=== PATIENT | female | born 1975 | race Caucasian/White ===

== ENCOUNTER → 2016-10-07 | Day surgery (SDC) | payer OTHER ==
--- NOTE | 2016-10-07 19:15 | US ---
Left Breast Biopsy Indication: The patient was initially scheduled for an ultrasound-guided core biopsy with a possible stereotactic biopsy for assessment of left breast microcalcifications. Comparison to breast ultrasound examination September 16, 2016 and screening breast tomosynthesis Dece mber 2015. Findings: Repeat sonographic interrogation of the well-circumscribed area at the 4:00 position shows findings compatible with a cyst. In a slightly deeper location there is a hypoechoic structure with associated microcalcifications which presumably accounts for the findings noted mammographically. The appearance is most consistent with benign findings associated with fibrocystic condition. There is p rominent heterogeneous glandular pattern in the region. Following an extended discussion with the patient she elected to cancel the scheduled biopsy and inst ead have a six-month follow up for these probably benign findings. IMPRESSION: Probably benign findings, BI-RADS 3. Recommendation: 6 month left breast sonographic and mammographic follow up. Findings and follow-up recommendations were reviewed with the patient in detail. This examination was performed at no additional charge to the patient.
== END | disposition home or self-care (01) ==
LOC: FIMAGING 09:06
PROVIDERS: ATTEND Radiology Diagnostic Radiology
DX: N60.02 Solitary cyst of left breast (principal); Z53.29 Procedure and treatment not carried out because of patient's decision for other reasons

== ENCOUNTER → 2017-03-29 | Outpatient (CLI) | payer OTHER | LOC: FIMAGING 14:07 | PROVIDERS: ATTEND Obstetrics & Gynecology | DX: R92.8 Other abnormal and inconclusive findings on diagnostic imaging of breast (principal) | CPT/HCPCS: G0206 ==

== ENCOUNTER 2017-08-07 16:18 | Emergency (ER) | payer OTHER ==
[2017-08-07] MEDS ORDERED: NS 500 ML IV ONE (16:26)
--- NOTE | 2017-08-07 16:27 | EDPHY ---
H & P HPI/ROS: CHIEF COMPLAINT: Cough, near-syncope HISTORY OF PRESENT ILLNESS: Patient is a 42-year-old female with a history of anxiety presents to the emergency department with multiple complaints. Patient states that she developed cold-like symptoms on July 26. She has been dealing with a cough and intermittent nasal congestion since that time. She feels as though his cold is going backwards. Her cough is nonproductive. Because of this she started taking Mucinex last night. Today she took Mucinex and then took a nap. Upon waking she tried to stand. When she stood up she felt lightheaded and dizzy so she laid back down. She called EMS. EMS reports the patient's glucose was 109. They had sinus tachycardia on the EKG. The patient denies any chest pain or shortness of breath at this time. No headache. No focal weakness or numbness. No abdominal pain. REVIEW OF SYSTEMS: My complete review of systems is negative except as mentioned in the HPI. Past Medical/Surgical History: Includes anxiety Past surgical history: Hysterectomy Social history: Patient does not smoke. She denies drug use. No recent alcohol. Smoking Status: Never smoked Physical Exam: Vitals noted GENERAL: Well-appearing, in no acute distress, alert. HEENT: Eyes normal to inspection, normal pharynx, no signs of dehydration. NECK: No thyromegaly, no lymphadenopathy, supple. RESPIRATORY: Clear to auscultation bilaterally, no rales, rhonchi or wheezing. CVS: Regular rate and rhythm, no rubs, murmurs, or gallops. ABDOMEN: Soft, nontender, nondistended, no organomegaly. BACK: Normal to inspection, no CVA tenderness. SKIN: Normal color, no rash, warm, dry. No pallor. EXTREMITIES: No pedal edema, no calf tenderness, no Homans sign or cords, no joint swelling. NEURO/PSYCH: Higher functions: Alert and Oriented x3. Normal speech and cognition. Normal mood and affect. Cranial nerves: Normal as tested. Cerebellar: Normal as tested. Good finger to nose, good [id number], normal gait. Peripheral exam: Normal motor exam. Normal sensation. Constitutional: Initial Vital Signs Temperature (C) 36.6 C 08/07/17 16:44 Heart Rate 97 08/07/17 16:44 Respiratory Rate 18 08/07/17 16:44 Blood Pressure 176/86 H 11/19/17 16:44 O2 Sat (%) 98 08/07/17 16:44 O2 Delivery Mode Room Air Allergies/Adverse Reactions: tramadol Allergy (Verified 09/17/16 13:01) Home Medications: Medication Instructions Recorded Herbals/Supplements -Info Only 1 ea PO DAILY 06/05/15 AZITHROMYCIN [Z-PACK] 250 mg PO DAILY #1 packet 08/07/17 Medical Decision Making - Diagnostics Imaging Results: Imaging Impressions Chest X-Ray 08/07/17 16:26 Impression: Suspect airways disease. ED Course/Re-evaluation: I met EMS on arrival in took report from the repairing calibrator. In the emergency department I discussed possible etiologies with the patient. I answered all her questions. Laboratory studies were sent. EKG and chest x-ray were ordered. EKG shows normal sinus rhythm, normal rate, normal axis, normal intervals. There are no ST or T-wave abnormalities. EKG is normal as interpreted by me. Chest x-ray: Please refer the dictated report by Dr. Mcneil. There is airway disease. No focal infiltrate. CBC shows a normal white count. Chemistry panel pending. Chemistry panel notable for slightly low potassium at 3.3. CO2 was low at 21. Anion gap 17. Troponin is negative. I discussed the result with the patient. Answered all her questions. Because she has had a chronic cough since July 26 and airway disease on her chest x -ray she will be treated with an antibiotic for chronic bronchitis. Patient was given warnings prior to leaving. She will return with worsening symptoms. Differential Diagnosis: My differential includes but is not limited to bronchitis, pneumonia, electrolyte abnormality, sugar abnormality, dehydration, anemia, , vasovagal episode, ACS, dysrhythmia - Data Points Laboratory Results: Laboratory Results 08/07/17 16:35 08/07/17 16:35 08/07/17 08/07/17 16:35 16:35 WBC 8.83 10^3/uL 10^3/uL (3.80-9.50) RBC 5.51 10^6/uL H 10^6/uL (4.18-5.33) Hgb 16.3 g/dL g/dL (12.6-16.3) Hct 46.9 % % (38.0-47.0) MCV 85.1 fL fL (81.5-99.8) MCH 29.6 pg pg (27.9-34.1) MCHC 34.8 g/dL g/dL (32.4-36.7) RDW 13.2 % % (11.5-15.2) Plt Count 254 10^3/uL 10^3/uL (150-400) MPV 9.4 fL fL (8.7-11.7) Neut % (Auto) 69.8 % % (39.3-74.2) Lymph % (Auto) 21.5 % % (15.0-45.0) Hickman % (Auto) 6.1 % % (4.5-13.0) Eos % (Auto) 1.5 % % (0.6-7.6) Baso % (Auto) 0.8 % % (0.3-1.7) Nucleat RBC Rel Count 0.0 % % (0.0-0.2) Absolute Neuts (auto) 6.16 10^3/uL 10^3/uL (1.70-6.50) Absolute Lymphs (auto) 1.90 10^3/uL 10^3/uL (1.00-3.00) Absolute Monos (auto) 0.54 10^3/uL 10^3/uL (0.30-0.80) Absolute Eos (auto) 0.13 10^3/uL 10^3/uL (0.03-0.40) Absolute Basos (auto) 0.07 10^3/uL 10^3/uL (0.02-0.10) Absolute Nucleated RBC 0.00 10^3/uL 10^3/uL (0-0.01) Immature Gran % 0.3 % % (0.0-1.1) Immature Gran # 0.03 10^3/uL 10^3/uL (0.00-0.10) Sodium 144 mEq/L mEq/L (134-144) Potassium 3.3 mEq/L L mEq/L (3.5-5.2) Chloride 106 mEq/L mEq/L (97-110) Carbon Dioxide 21 mEq/l L mEq/l (22-31) Anion Gap 17 mEq/L H mEq/L (8-16) BUN 13 mg/dL mg/dL (7-23) Creatinine 0.8 mg/dL mg/dL (0.6-1.0) Estimated GFR > 60 Glucose 130 mg/dL H mg/dL (70-100) Calcium 10.2 mg/dL mg/dL (8.5-10.4) Troponin I < 0.012 ng/mL ng/mL (0.000-0.034) Medications Given: Discontinued Medications Sodium Chloride (Ns) 500 mls @ 0 mls/hr IV EDNOW ONE; Wide Open PRN Reason: Protocol Stop: 08/07/17 16:27 Last Admin: 08/07/17 16:56 Dose: 500 mls Departure - Departure Disposition: Home, Routine, Self-Care Clinical Impression: Near syncope, Bronchitis Condition: Good Instructions: Acute Bronchitis (ED), Near Syncope (ED) Additional Instructions: Return with increasing cough, shortness of breath, dizziness, lightheadedness, repeat fainting episodes or any other concerns. Referrals: Patient,NotPresent [Unknown] - As per Instructions
--- NOTE | 2017-08-07 16:40 | CPEKG ---
Heart Rate: 84 RR Interval: 714 P-R Interval: 168 QRSD Interval: 76 QT Interval: 376 QTC Interval: 445 P [place]: 80 QRS [place]: 51 T Wave [place]: 15 EKG Severity - BORDERLINE ECG - EKG Impression: SINUS RHYTHM EKG Impression: PROBABLE LEFT ATRIAL ABNORMALITY Electronically Signed By: Rebeca Ortiz 07-Aug-2017 22:35:19
[2017-08-07 16:43] LABS: % IMMATURE GRANULYOCYTES 0.3 % (0.0-1.1); ABSOLUTE IMMATURE GRANULOCYTES 0.03 10^3/uL (0.00-0.10); ADD DIFF? NO; ADD MORPH? NO; ADD SCAN? NO; ATYPICAL LYMPHOCYTE FLAG 10 (0-99); FRAGMENT RBC FLAG 0 (0-99); HEMATOCRIT 46.9 % (38.0-47.0); HEMOGLOBIN 16.3 g/dL (12.6-16.3); LEFT SHIFT FLG 0 (0-99); LIPEMIA HEMOLYSIS FLAG 90 (0-99); MEAN CELL HEMOGLOBIN 29.6 pg (27.9-34.1); MEAN CELL HEMOGLOBIN CONCENTR. 34.8 g/dL (32.4-36.7); MEAN CELL VOLUME 85.1 fL (81.5-99.8); MEAN PLATELET VOLUME 9.4 fL (8.7-11.7); PLATELET CLUMPS FLAG 0 (0-99); PLATELET COUNT 254 10^3/uL (150-400); RED BLOOD CELL COUNT 5.51 10^6/uL (4.18-5.33); RED CELL DISTRIBUTION WIDTH 13.2 % (11.5-15.2)
[2017-08-07 17:07] LABS: ANION GAP 17 mEq/L (8-16); CALCIUM 10.2 mg/dL (8.5-10.4); CARBON DIOXIDE 21 mEq/l (22-31); CHLORIDE 106 mEq/L (97-110); CREATININE 0.8 mg/dL (0.6-1.0); GLOMERULAR FILTRATION RATE > 60; GLUCOSE 130 mg/dL (70-100); POTASSIUM 3.3 mEq/L (3.5-5.2); SODIUM 144 mEq/L (134-144)
[2017-08-07 17:18] LABS: TROPONIN I < 0.012 ng/mL (0.000-0.034)
[2017-08-07 18:11] VITALS: BP 128/85; PULSE 78; RESP 16; TEMP 97.7; O2SAT 99
== END 2017-08-07 18:30 | disposition home or self-care (01) ==
LOC: EDUNIT#
PROC: 3E0337Z Introduction of Electrolytic and Water Balance Substance into Peripheral Vein, Percutaneous Approach (ICD-10-PCS; principal; 2017-08-07)
DX: J20.9 Acute bronchitis, unspecified (principal); R55 Syncope and collapse; E86.9 Volume depletion, unspecified

== ENCOUNTER → 2017-10-03 | Outpatient (CLI) | payer OTHER | LOC: FIMAGING 15:09 | PROVIDERS: ATTEND Obstetrics & Gynecology | DX: Z12.31 Encounter for screening mammogram for malignant neoplasm of breast (principal); Z80.3 Family history of malignant neoplasm of breast ==

== ENCOUNTER → 2017-10-14 | Outpatient (CLI) | payer OTHER | LOC: FIMAGING 14:04 | PROVIDERS: ATTEND Obstetrics & Gynecology | DX: N63.20 Unspecified lump in the left breast, unspecified quadrant (principal) ==

== ENCOUNTER → 2018-10-21 | Outpatient (CLI) | payer OTHER | LOC: FIMAGING 09:45 | PROVIDERS: ATTEND Obstetrics & Gynecology | DX: Z12.31 Encounter for screening mammogram for malignant neoplasm of breast (principal); Z80.3 Family history of malignant neoplasm of breast ==